=== PATIENT | female | born 1990 | race Caucasian/White ===

== ENCOUNTER 2017-05-27 18:45 | Emergency (ER) | payer BC ==
[~2017-05-27] VITALS: Ht 165.1 cm; Wt 56.7 kg
[2017-05-27] MEDS ORDERED: NORFLEX100 MG PO (19:22)
[2017-05-27] MEDS ORDERED: NAPROSYN500 MG PO (19:22)
== END 2017-05-27 19:44 | disposition home or self-care (01) ==
LOC: ER 18:45
DX: S63.502A Unspecified sprain of left wrist, initial encounter (principal); S60.417A Abrasion of left little finger, initial encounter; Z88.1 Allergy status to other antibiotic agents; V43.52XA Car driver injured in collision with other type car in traffic accident, initial encounter; Y93.89 Activity, other specified; Y92.89 Other specified places as the place of occurrence of the external cause; Y99.8 Other external cause status